=== PATIENT | female | born 1955 | race Caucasian/White ===

== ENCOUNTER 2021-03-03 13:39 | Outpatient (REF) | payer MEDICARE, OTHER, SELFPAY ==
[2021-03-03 14:18] LABS: MANUAL DIFF FLAG NO
[2021-03-03 14:26] LABS: Basophils Percent Auto 0.5 % (0-2); Eosinophils Absolute Auto 0.2 X10*3/uL (0.0-0.4); Eosinophils Percent Auto 2.5 % (0-4); Hematocrit 37.6 % (37-47); Hemoglobin 11.9 g/dl (12.0-16.0); Imm Gran Abs Auto 0.04 X10*3/uL (0.00-0.03); Imm Gran Pct Auto 0.5 % (0.0-0.4); Lymphocytes Absolute Auto 1.3 X10*3/uL (1.2-4.9); Lymphocytes Percent Auto 17.9 % (20-40); Mean Corpuscular HGB Conc 31.6 g/dl (31.0-35.0); Mean Corpuscular Hemoglobin 28.5 pg (27.0-33.0); Mean Platelet Volume 9.3 fL (9.4-12.3); Monocytes Absolute Auto 0.5 X10*3/uL (0.1-1.2); Monocytes Percent Auto 6.3 % (2-11); Neutrophils Absolute Auto 5.4 X10*3/uL (2.0-8.3); Neutrophils Percent Auto 72.3 % (45-73); Platelet Count 343 X10*3/uL (160-400); Red Blood Count 4.18 X10*6/uL (4.20-5.50); White Blood Count 7.5 X10*3/uL (4.8-10.8)
[2021-03-03 14:43] LABS: Anion Gap 16 (12-20); Blood Urea Nitrogen 47 mg/dL (9-16); Calcium 10.3 mg/dL (8.4-10.2); Carbon Dioxide 31 mmol/L (22-29); Chloride 98 mmol/L (96-108); Estimated Glomerular Filt Rate 30; Glucose Random 126 mg/dL (60-115); Potassium 3.6 mmol/L (3.3-5.1); Sodium 141 mmol/L (135-145)
== END 2021-03-03 13:40 | disposition home or self-care (01) ==
LOC: HO.LAB 13:39
PROVIDERS: PCP Internal Medicine; Visit Provider Psychiatry & Neurology Neurology
DX: G43.909 Migraine, unspecified, not intractable, without status migrainosus (principal)
CPT/HCPCS: 36415; 80048; 80156; 85025

== ENCOUNTER 2025-07-04 13:30 | Outpatient (AMB) | payer MEDICARE, OTHER, SELFPAY ==
--- OUTSIDE RECORDS SUMMARY | 2024-03-02 10:00 | XMS_ITS ---
Author Organization [facility] Address [address] [address] Care Team Providers Care Facepiece Line Supervisor Name Role Phone Kodak Cutler Primary Care Provider Unavailabl Jayme Kauffman Unavailable [phone] REASON FOR VISIT COLON/egd Encounters Encounter Location Date Provider Diagnosis [facility] [address], [place] [id number] 03/02/2024 Jayme Jane Plan Of Treatment No Information Progress Notes * Marc BARKLEYeDOB: (70 yo F)Acc No.[id number]:03/02/2024 Patient: Viktoria Xie Provider: Rani Jane M.D. :1955 A ge:68 Y S ex:Female Date:03/02/2024 Address:[address] [place], [place] [id number] Pcp:Kodak Cutler Billing Information: * Procedure Codes: * Electronic signature of Mode Jane MD on 07/04/2025 at 04:05 PM EST Sign off status: Pending * Provider: Rani Jane M.D. Date: 0 03/02/2024 Generated for Laureen manrique/Nia/eTransmitting on: 09/04/2024 04:05 PM EST
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
--- OUTSIDE RECORDS SUMMARY | 2025-07-04 16:06 | XMS_ITS | Patient Health Record ---
Author Organization [facility] Address [address] [place] [address] Care Team Providers Care Network Programmer Name Role Phone Kodak Cutler Primary Care Provider Unavailjean e Jayme Jane Unavailable [phone] Allergies Allergen (clinical drug ingredient) Drug/Non Drug Allergy documented on EMR Reaction Allergy Type Onset Date Status iv contrast (uncoded) Unknown Allergy Active erythromycin Erythromycin Unknown Drug Allergy A ctive morphine Morphine Unknown Drug Allergy Active Penicillin Unknown Drug Allergy Active simvastatin Simvastatin Unknown Drug Allergy Act caleb vancomycin Vancomycin Unknown Drug Allergy Activ e Reason For Referral No Information Medications Medication SIG (Take, Route, Frequency, Duration) Notes Start Date End Date Status GaviLyte-C 240 GM Solution Reconstituted 240ml Orally as directed; Duration: 2 days 02/15/2024 Active Supplements Active Social History Tobacco Use: Social History Observation Description Date Details (start date - stop date) Former Smoker NA - NA Social History Tobacco Use: Social Info Question Answer Notes Tobacco Control (Standard) Tobacco use: Former smoker Additional Findings: Tobacco non-user Ex-moderat e cigarette smoker (10-19/day) Smoking cessation: Patient was counsele d to avoid tobacco products: QUIT Additional Details Category Social Info Options Details Drugs/Alcohol: Alcohol Use: none Problems Problem Type SNOMED Code ICD Code Onset Dates Problem Status W/U Status Risk Notes Problem Gastroesophageal reflux disease (501456011) GERD (gastroesop hageal reflux disease) (K21.9) Active confirmed Problem History of polyp of colon (situation) (796357440) History of colon polyps (Z86.010) Active confirmed Problem Hemorrhage of rectum and anus (786470117) Rectal bleed (K62.5) Active confirmed Plan Of Treatment Pending Test Test Name Order Date CBC (INCLUDES DIFF/PLT) 03/08/2024 Insurance Providers Payer Name Payer Address Payer Phone Subscriber Number Group Number Insured Name Patient Relationship to Insured Coverage Start Date Coverage End Date MEDICARE [address] Part [place] [phone] [id number] Viktoria Barkley Self - patient is the insured [facility] [address] [place] [address] [phone] [id number] Viktoria Barkley Self - patient is the insured Medical (General) History Medical History History ICD Code Date of last colonoscopy: 7 Years Ago Date of last EGD: ? Name and date of other past procedures:: I had many procedures done for different reasons and surgeries Surgical History Surgery Date(Month/Year) dilatation and curettage Kidney stones b/l knee replacement Hip surgery,RT lung ABLASION RT LEG ORIF
--- OUTSIDE RECORDS SUMMARY | 2025-07-04 16:06 | XMS_ITS | Clinical Summary ---
Author Organization [facility] Address [address] [place] [address] Phone Care Team Providers Care Cloth Printing Utility Worker Name Role Phone Alejandro Márquez MD Primary Care Provider + Allergies Active Allergy Reactions Criticality Noted Date Comments Indomethacin 03/10/2019 Morphine 03/10/2019 Penicillins 03/10/2019 Medications acetaminophen (TYLENOL) 325 mg tablet Take 650 mg by mouth every 6 (six) hours as needed for mild pain. Active biotin 2,500 mcg Cap Take by mouth. Activ e calcium carb-magnesium ox,carb 200 mg calcium- 100 mg Chew Take by mouth. Activ e carBAMazepine (TEGRETOL) 200 mg tablet Take 200 mg by mouth 3 (three) times a day. Active cyanocobalamin, vitamin B-12, 1,000 mcg/mL Drop Place under the tongue. Active diazePAM (VALIUM) 5 MG tablet Take 5 mg by mouth every 6 (six) hours as needed for anxiety. Active ERGOCALCIFEROL, VITAMIN D2, ORAL Take by mouth. Activ e ferrous sulfate 325 mg (65 mg [place] iron) tablet Take 325 mg by mouth daily with breakfast. Active folic acid (FOLVITE) 1 MG tablet Take 1 mg by mouth daily. Active furosemide (LASIX) 40 MG tablet Take 40 mg by mouth. Active insulin detemir U-100 (LEVEMIR) 100 unit/mL injection vial Inject under the skin nightly at bedtime. Active losartan (COZAAR) 100 MG tablet Take 100 mg by mouth daily. Active magnesium 30 mg tablet Take 30 mg by mouth 2 (two) times a day. Active nystatin ointment Apply topically 2 (two) times a day. Active omeprazole (PRILOSEC) 10 MG capsule Take 10 mg by mouth daily. Active polyethylene glycol (MIRALAX) 17 gram packet Take 17 g by mouth daily. Active albuterol sulfate (PROAIR RESPICLICK) 90 mcg/actuation AePB Inhale 180 mcg into the lungs every 4 (four) hours. Active promethazine (PHENERGAN) 50 MG tablet Take 50 mg by mouth every 6 (six) hours as needed for nausea. Active sertraline (ZOLOFT) 50 MG tablet Take 50 mg by mouth daily. Active simvastatin (ZOCOR) 40 MG tablet Take 40 mg by mouth nightly at bedtime. Active topiramate (TOPAMAX) 50 MG tablet Take 50 mg by mouth 2 (two) times a day. 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 Not on patrick e 12/01/2022 Are you concerned about learning? Not on file 12/01/2022 No 12/01/2022 No 12/01/2022 Digital Access Answer Date Recorded No 12/27/2022 No 12/27/2022 No 12/27/2022 Reliable internet access at home? Not on file 12/27/2022 Device with a working camera? Not on file Comments Unknown Sex and Gender Information Value Date Recorded Sex Assigned at Not on file Legal Sex Female 6:38 PM EST Gender Identity Not on file Sexual Orientation Not on file Last Filed Vital Signs Vital Sign Reading Time Taken Comments Blood Pressure - - Pulse - - Temperature 36.6 C (97.9 F) 03/10/2019 2:43 PM EDT Respiratory Rate - - Oxygen Saturation - - Inhaled Oxygen Concentration - - Weight 91.9 kg (202 lb 9.6 oz) 03/10/2019 2:43 P M EDT Height 167.6 cm (5' 6 ) 03/10/2019 2:43 PM EDT Body Mass Index 32.7 03/10/2019 2:43 PM EDT Plan of Treatment Health Maintenance Due Date Last Done Comments Adult Td,Tdap Booster 1955 CARBAMAZEPINE (TEGRETOL) LEVEL 1955 CREATININE LEVEL 1955 LIPID PANEL 1955 POTASSIUM LEVEL 1955 DEPRESSION SCREENING 1967 SMOKING Hx and SMOKELESS TOBACCO SCREENING 1968 HEPATITIS C SCREENING 1973 MAMMOGRAM 1995 COLOGUARD 2000 COLONOSCOPY 2000 COLORECTAL CANCER SCREENING 2000 FIT TEST 2000 FOBT 2000 SIGMOIDOSCOPY 2000 VIRTUAL COLONOSCOPY 2000 ZOSTER VACCINES (2 of 2) 07/06/2019 05/11/2019 OSTEOPOROSIS SCREENING INITI AL (ONE-TIME) 2020 INFLUENZA VACCINE (#1) 2025 1, 05/13/2018 COVID-19 VACCINE (2 - 2024-2 6 season) 2025 06/04/2021 PNEUMOCOCCAL VACCINES (50+ years) (3 of 3 - PCV20 or PCV21) 01/29/2026 01/29/2021, 05/13/2018 RSV VACCINE (1 - 1-dose 75+ series) 2030 HEPATITIS A VACCINES Aged Out No long er eligible based on patient's age to complete this topic HIB VACCINES Aged Out No longer eligi ble based on patient's age to complete this topic MENINGOCOCCAL VACCINES (ACWY) Aged Out No longer eligible based on patient's age to complete this topic MENINGOCOCCAL VACCINES (B) Aged Out N o longer eligible based on patient's age to complete this topic Medical Devices Not on file [facility] IN[facility]MNITY [employer] TOTAL CHOICE INDEMNITY [employer] TOTAL CHOICE INDEMNITY [employer] TOTAL CHOICE INDEMNITY [employer] TOTAL CHOICE INDEMNITY [employer] TOTAL CHOICE INDEMNITY [employer] TOTAL CHOICE INDEMNITY [employer] TOTAL CHOICE INDEMNITY [facility] TOTAL CHOICE INDEMNITY Care Teams Cloth Printing Utility Worker Relationship Specialty Start Date End Date Alejandro Márquez MD [address] [place] [phone] PCP - General Internal Medicine 02/28/19 Additional Source Comments The information contained in this document represents components of the legal health record. It is not the complete legal health record.[facility]
--- OUTSIDE RECORDS SUMMARY | 2025-07-04 16:06 | XMS_ITS | Encounter Summary ---
Author Organization [facility] Address [address] [place] [address] Phone Care Team Providers Care Vinyl Cutter Name Role Phone Alejandro Márquez MD Primary Care Provider + Reason for Referral * MRI/CAT Scan - Closed Specialty Diagnoses / Procedures Referred By Contac t Referred To Contact Procedures CT Lower Extremity Outside (No Interpretation) Carlos A Prieto MD Phone: tel: [email or web address] Referral ID Status Reason Start Date Expiration Date Visits Re quested Visits Authorized [id number] Closed 03/10/2019 03/09/2020 1 1 Encounter Details Date Type Department Care Team (Late st Contact Info) Description 03/10/2019 Transcribe Orders [facility] [address] [place] [phone] Ariel Damico [address] [place] [phone] [email or web address] Social History Tobacco Use Types Packs/Day Years Used Date Smoking Tobacco: Never Assessed Comments Unknown Sex and Gender Information Value Date Recorded Sex Assigned at Not on file Legal Sex Female 6:38 PM EST Gender Identity Not on file Sexual Orientation Not on file documented as of this encounter Plan of Treatment Not on file documented as of this encounter Results * XR Lower Extremity Outside (No Interpretation) (03/10/2019 3:16 PM EDT) Narrative PERCIPIO_BW - 03/10/2019 3:16 PM EDT This study is for PACS storage only and not for interpretation. us Carlos A Prieto MD IMG OUTSIDE IMAGING W/OUT INTER PRETATION Final Result Performing Organization Address [facility] de Phone Number [email or web address] * CT Lower Extremity Outside (No Interpretation) (03/10/2019 3:16 PM EDT) Narrative PERCIPIO_BAYRON - 03/10/2019 3:16 PM EDT This study is for PACS storage only and not for interpretation. us Carlos A Prieto MD IMG OUTSIDE IMAGING W/OUT INTER PRETATION Final Result Performing Organization Address [facility] de Phone Number [email or web address] documented in this encounter Visit Diagnoses Not on filedocumented in this encounter Care Teams Vinyl Cutter Relationship Specialty Start Date End Date Alejandro Márquez MD [address] [place] [id number] PCP - General Internal Medicine 02/28/19 documented as of this encounter Additional Source Comments The information contained in this document represents components of the legal health record. It is not the complete legal health record.[facility]
== END 2025-07-04 14:05 | disposition home or self-care (01) ==
LOC: HO.HSM 13:31
PROVIDERS: PCP Internal Medicine; Visit Provider Psychiatry & Neurology Neurology
DX: G43.909 Migraine, unspecified, not intractable, without status migrainosus (principal); M79.7 Fibromyalgia
CPT/HCPCS: 99214

== ENCOUNTER → 2025-07-04 13:30 | Outpatient (BNVA) | payer MEDICARE, OTHER, SELFPAY | PROVIDERS: PCP Internal Medicine; Visit Provider Psychiatry & Neurology Neurology | DX: G43.709 Chronic migraine without aura, not intractable, without status migrainosus (principal); M79.7 Fibromyalgia; Z99.2 Dependence on renal dialysis; Z87.81 Personal history of (healed) traumatic fracture; Z98.890 Other specified postprocedural states | CPT/HCPCS: 99212 ==